=== PATIENT | female | born 1970 | race African-American/Black ===

== ENCOUNTER 2019-05-08 15:16 | Emergency (ER) | payer OTHER, SELFPAY ==
[2019-05-08 15:17] VITALS: BP 107/64; PULSE 102; RESP 18; TEMP 36.8; O2SAT 99; BMI 31.6
--- NOTE | 2019-05-08 15:18 | EKG12_ITS ---
Test Reason : COUGH Blood Pressure : / mmHG Vent. Rate : 084 BPM Atrial Rate : 084 BPM P-R Int : 152 ms QRS Dur : 088 ms QT Int : 356 ms P-R-T Axes : 053 021 033 degrees QTc Int : 420 ms Normal sinus rhythm Moderate voltage criteria for LVH, may be normal variant Borderline ECG Confirmed by CHRIS CARLSON, MOISES ([id number]), film editor YOLI TOBIN ([id number]) on 05/12/2019 9:12:06 AM Referred By: SAROJ Confirmed By:MOISES PEREZ MD
[2019-05-08 15:19] VITALS: O2SAT 99
--- NOTE | 2019-05-08 15:20 | ED.VIS.GEN ---
History of Present Illness Chief Complaint: Cough Informant: Patient Onset: Days - 4 days Context: Gradual Onset Current Severity: Moderate Maximum Severity: Moderate Narrative: Patient presents with cough and generalized fatigue for the past 4 days. She had subjective fever. She denies chest pain or shortness of breath. She is from [place] and works as a recycler forklift driver truck driver. She has a history of hypertension. - Past Medical History (1) Hypertension Status: Chronic Past Medical History - Allergies and Home Meds Allergies/Adverse Reactions: Allergies No Known Allergies Allergy (Verified 05/08/19 15:19) Primary Care Physician: [facility],Out of [Primary Care Provider] - Smoking Status: Current every day smoker Review of Systems General: Reports: Fever, Subjective Eyes: Denies: Visual changes - bilaterally ENT: Denies: Bilateral ear pain Cardiovascular: Denies: Chest pain, Palpitations Respiratory: Reports: Cough, Sputum. Denies: Dyspnea Gastrointestinal: Denies: Abdominal pain, Nausea, Vomiting, Diarrhea Genitourinary: Denies: Dysuria Musculoskeletal: Denies: Extremity Pain Skin: Denies: Rash Neurological: Denies: Headache Allergy: Denies: Uticaria Physical Exam Vital Signs/Narrative: Vital Signs Temp Pulse Resp BP Pulse Ox 05/08/19 15:17 98.2 F 102 H 18 107/64 99 Inital Vital Signs reviewed: Yes General: Well nourished, Well developed Head: Normocephalic Eyes: Perrl, EOMI ENT: TM's clear, - - Normal posterior pharynx Neck: Supple Cardiovascular: Regular rate, Regular rhythm Respiratory: No distress, CTA bilaterally Abdomen: Soft, Nontender, Nondistended Extremities: Nontender Skin: Normal color, No rash Neurological: Alert, Oriented x3 Psychological: Normal affect Diagnostic/Tx/Re-eval Impressions Chest X-Ray 05/08/19 15:30 IMPRESSION: Underexpansion of the lungs. Summation of shadows versus infiltrate left lower lobe. Could consider follow-up PA and lateral film of the chest. Electronically Signed: Leigha Miranda MD at 15:41 EDT Tel , Service support , 05/08/19 15:30 Chest 1 View (Portable) [RAD] Stat 05/08/19 15:45 Mucosa - Nose Influenza Types A,B Direct FA (TIFFANI) - Final Laboratory Results 05/08/19 05/08/19 15:25 15:25 WBC 13.9 H RBC 4.09 L Hgb 7.1 L Hct 27.0 L MCV 66.0 L MCH 17.4 L MCHC 26.3 L RDW Std Deviation 51.5 H RDW Coeff of Areli 22.8 H Plt Count 412 MPV TNP Immature Gran % (Auto) 1.300 H Neut % (Auto) 79.6 H Lymph % (Auto) 9.0 L Mobile % (Auto) 9.0 Eos % (Auto) 0.9 Baso % (Auto) 0.2 Absolute Neuts (auto) 11.1 H Absolute Lymphs (auto) 1.26 Nucleated RBC % 0.4 Differential Comment SCANNED Sodium 137 Potassium 3.8 Chloride 101 Carbon Dioxide 26.0 Anion Gap 10 BUN 16 Creatinine 1.38 H Estim Creat Clear Calc 56.33 Est GFR (MDRD) Af Amer 53 L Est GFR (MDRD) Non-Af 43 L BUN/Creatinine Ratio 11.6 Glucose 132 H Calcium 8.5 - EKG Initial EKG Interpretation: Sinus Rhythm - Sinus 84 with no acute ischemia. - Medical Decision Making Patient was given Toradol along with Hycodan syrup to help with cough here. She is given IV fluids. Test results are discussed with her. She has a potential infiltrate noted on her x-ray along with an elevated white count, cough, and subjective fevers. She will be treated with a course of Levaquin, first dose given here. She is also noted to be anemic with a hemoglobin of 7.1. When I questioned her about this she states that she is had problems with low iron counts since the of her first child. She will be sure that she is taking her iron supplements and have her blood counts rechecked when she returns home to [place]. ED Disposition - Plan for ED Patient: Disposition: Home or Assisted Living Diagnosis: Pneumonia Instructions: PNEUMONIA (Adult) Prescriptions: Levofloxacin [Levaquin] 750 mg PO DAILY #4 tab Transmission Status: Pending to [id number] Referrals: [facility],Out of [Primary Care Provider] -
--- NOTE | 2019-05-08 15:30 | RAD_ITS ---
STUDY: X-RAY CHEST REASON FOR EXAM: Female, 48 years old. Cough x 5 days, weakness TECHNIQUE: Single AP portable view of the chest. COMPARISON: None. FINDINGS: Lungs are underexpanded. There is mild interstitial prominence in the lung bases. There is a suggestion of possible focal opacity in the left lower lobe versus summation of shadows. There is no demonstrated pleural abnormality. There is mild cardiac enlargement. Normal mediastinum and luis. Normal visualized pulmonary arteries. Normal visualized aortic arch and descending thoracic aorta. There are diffuse degenerative changes of the visualized thoracic spine. Normal visualized ribs, clavicles, and shoulders. There is no demonstrated abnormality of the visualized soft tissue structures of the upper abdomen. RAD/Chest 1 View (Portable) IMPRESSION: Underexpansion of the lungs. Summation of shadows versus infiltrate left lower lobe. Could consider follow-up PA and lateral film of the chest. Electronically Signed: Leigha Miranda MD at 15:41 EDT Tel , Service support ,
[2019-05-08 15:37] LABS: Absolute Lymphocyte Count 1.26 X10^3/uL (0.83-4.51); Absolute Neutrophil Count 11.1 X10^3/uL (2.0-7.7); Basophil# 0.03 X10^3/uL; Basophil% 0.2 % (0-1); Eosinophil# 0.12 X10^3/uL; Eosinophils% 0.9 % (0-5); Hemoglobin 7.1 g/dL (12.0-15.0); Lymphocyte # 1.26 X10^3/ul (4.0); Mean Corp Hgb Conc 26.3 g/dL (32-36); Mean Corpuscular Hgb 17.4 pg (27.0-32.0); Monocyte# 1.25 X10^3/uL; NRBC Flagged by Analyzer 0.4 % (0-5); Neutrophil # 11.09 X10^3/uL (2.7-7.7); Neutrophil % 79.6 % (47-70); POSITIVE MORPHOLOGY YES; Platelet Count 412 K/mm3 (150-450); RBC Distribution Width CV 22.8 % (11.6-14.6); RBC Distribution Width SD 51.5 fl (35.1-43.9); Red Blood Count 4.09 M/mm3 (4.2-5.4); White Blood Count 13.9 K/mm3 (4.4-11.0)
[2019-05-08] MEDS: Ketorolac 30 MG/ML Syringe IV (15:38)
[2019-05-08] MEDS: 0.9% Normal Saline 1,000 ML 1000 ML IV (15:38)
[2019-05-08 15:43] LABS: Differential Indicated SCAN CRITERIA MET
[2019-05-08 15:59] LABS: Anion Gap 10 (5-15); BUN 16 mg/dL (7-18); BUN/Creat Ratio 11.6 RATIO (10-20); Calcium,Total 8.5 mg/dL (8.5-10.1); Chloride 101 mmol/L (98-107); Creatinine, Serum 1.38 mg/dL (0.55-1.02); EST Glomerular Filtration Rate 43 mL/min (>60); Est Glom Filt Rate - Afr Amer 53 mL/min (>60); Estimated Creatinine Clearance 56.33 ml/min; Glucose 132 mg/dL (74-106); Potassium 3.8 mmol/L (3.5-5.1); Sodium Level 137 mmol/L (136-145)
[2019-05-08 16:43] LABS: Differential Comment SCANNED
[2019-05-08 17:22] VITALS: BP 117/73; PULSE 82; RESP 21; O2SAT 98
[2019-05-08 17:35] VITALS: BP 123/59; PULSE 89; RESP 18; O2SAT 98
[2019-05-08] MEDS: levoFLOXacin 750 MG Tablet PO (17:36)
== END 2019-05-08 17:42 | disposition home or self-care (01) ==
PROVIDERS: Emergency Provider Emergency Medicine
DX: J18.9 Pneumonia, unspecified organism (principal); I10 Essential (primary) hypertension; F17.200 Nicotine dependence, unspecified, uncomplicated
CPT/HCPCS: 71045; 80048; 85025; 87804; 93005; 96361; 96374; 99285; J7030; A4216